=== PATIENT | female | born 1955 | race Caucasian/White ===

== ENCOUNTER → 2016-11-16 | Outpatient (CLI) | payer OTHER ==
[~2016-11-16] MED LIST: IBUP-1459 PO; MULT-506 PO; No Home Medications
--- NOTE | 2016-11-16 14:43 | MAMMOGRAPHY REPORT ---
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 She presents for annual bilateral mammography. TECHNIQUE: Bilateral CC and MLO 2-D digital and tomosynthesis images, spot magnification left CC, ML and spot compression tomosynthesis right CC and MLO views were obtained. Current study was also ev aluated with a Computer Aided Detection (CAD) system. COMPARISON: Comparison is made to exams dated: 05/18/2016 mammogram, 11/16/2015 stereotactic biopsy, mammogram, 11/09/2015 mammogram, 10/30/2015 mammogram, and 12/03/2013 mammogram - [facility]. BREAST COMPOSITION: There are scattered areas of fibroglandular density in both breasts. FINDINGS: A linear scar marker overlies the lower inner periareolar right breast. No obvious new m ass or new microcalcifications are seen in the right breast. There is minimal vascular calcificatio n. There is a possible subtle focal area of architectural distortion in the central right breast on CC tomosynthesis slice 24 and MLO tomosynthesis slice 29 for which additional spot compression iraj synthesis views were obtained. The additional spot compression tomosynthesis views in this area wit h small paddles fail to demonstrate the distortion, given the conspicuous nature on the CC tomosynth esis images, this area remains indeterminate. Further evaluation with ultrasound was performed. There is expected architectural distortion with 2 surgical clips in the 12:00 and central left breas t, at the site of prior lumpectomy. The spot magnification views demonstrate new pleomorphic microc alcifications extending over 14 x 17 x 6 mm in the middle one third of the left breast, just lateral and superior to the surgical site. These calcifications could possibly represent fat necrosis, but recurrent DCIS cannot be excluded, especially given that the morphology is somewhat similar to the original biopsy-proven DCIS. Therefore, further evaluation with a stereotactic guided biopsy is rec ommended. No other obvious new mass or unexpected architectural distortion is seen in the left [address]. Real-time high-resolution ultrasound was performed throughout the right breast. No corresponding fo mariela area of architectural distortion is identified on ultrasound. IMPRESSION: ACR BI-RADS CATEGORY 4B: INTERMEDIATE SUSPICION FOR MALIGNANCY, TARGETED ULTRASOUND ACR BI-RADS CATEGORY 4B: INTERMEDIATE SUSPICION FOR MALIGNANCY 1. There are new pleomorphic microcalcifications in the upper outer middle one third of the left br east, adjacent to the surgical site, extending over approximately 17 mm. Although these calcificati ons could represent fat necrosis, recurrent DCIS cannot be excluded and further evaluation with a le ft breast stereotactic guided biopsy is recommended. 2. There is a subtle probable area of architectural distortion in the central right breast. The pa koko does have a skin scar in the periareolar right breast from prior cyst excision many years ago. It is unclear if this distortion could be related to the remote surgery or represent a lesion such as a radial scar or carcinoma. As it was not identified on ultrasound, further evaluation with a c ontrast-enhanced breast MRI is recommended. Ideally would like the MRI performed prior to left maxine st stereotactic biopsy, in case there are any suspicious abnormalities seen in the right breast, the n we could perform both biopsies at the same time. These results and recommendations were discussed with the patient at the time of the exam. Will mark it the patient's discussion with her breast surgeon, Dr. Orellana, prior to scheduling any follow-up appointments. Approximately 10% of breast cancers are not detected with mammography. A negative mammographic repor t should not delay biopsy if a clinically suggestive mass is present. Denisse Powers M.D. ay/:11/16/2016 12:17:58 President + Publisher: Narcisa CLEVELAND(Karla)(Sheldon), [facility] letter sent: Abnormal 4/5 BI-RADS Code: ACR BI-RADS Category 4B: Intermediate Suspicion For Malignancy Ultrasound BI-RADS: AC R BI-RADS Category 4B: Intermediate Suspicion For Malignancy
== END | disposition home or self-care (01) ==
LOC: C.MAMM 10:43
PROVIDERS: ATTEND Surgery
DX: R92.0 Mammographic microcalcification found on diagnostic imaging of breast (principal); R92.8 Other abnormal and inconclusive findings on diagnostic imaging of breast; Z92.3 Personal history of irradiation; Z85.3 Personal history of malignant neoplasm of breast

== ENCOUNTER → 2016-12-01 | Outpatient (CLI) | payer OTHER ==
[~2016-12-01] MED LIST changes: +GADAVIST IV PRN
--- NOTE | 2016-12-05 13:19 | MAMMOGRAPHY REPORT ---
BREAST MRI OF BOTH BREASTS : 12/01/2016 CLINICAL HISTORY: History of left breast DCIS status post lumpectomy November 2015 as well as radiation therapy. New suspicious calcifications seen near the lumpectomy bed in the left breast on recent m ammograms. There is also a possible area of architectural distortion seen within the right breast o n recent mammograms. COMPARISON: Comparison is made to exams dated: 11/16/2016 mammogram, 05/18/2016 mammogram, 11/16/2016 ul trasound, 11/16/2015 mammogram, 05/10/2012 mammogram, and 12/03/2013 mammogram - [facility]. Technique: The patient was placed prone in a dedicated breast imaging coil. Precontrast axial T1-we ighted, axial T2-weighted fat saturation, and axial T1-weighted fat saturation images were obtained. After the administration of 7.5 mL of Gadavist IV contrast, sequential T1-weighted fat saturation images were obtained. Subtraction images were obtained of the dynamic contrast enhanced sequences, and 3-D reformations were performed. The [employer] software was used for kinetic analysis. Findings: Right breast: There is moderate background parenchymal enhancement, which reduces the sensitivity of the exam. Within the limitations of the exam, there are no suspicious enhancing masses or areas of abnormal non-mass enhancement. There is no clear abnormality seen within the region of the possibl e architectural distortion posterior to the right nipple on recent diagnostic mammograms. Left breast: There is moderate background parenchymal enhancement. Post surgical changes are seen w ithin the left breast from prior lumpectomy, predominantly involving the 12:00 and central breast. There is a focal area of abnormal non-mass enhancement seen within the left 12:30 to 1:00 breast mid dle depth, measuring approximately 1.1 x 2.2 cm (series [id number] image 54). This demonstrates a mixed kinetic pattern including suspicious washout kinetics. The enhancement corresponds with the new matheus mographic calcifications and is suspicious for malignancy. Two small adjacent 4 mm foci of enhanceme nt are also seen within the left superior subareolar breast anterior depth, which demonstrate persis tent and plateau kinetics (series [id number] images 58 and 60), and are indeterminate. There is no evidence of axillary adenopathy. The chest wall structures are negative. Visualized ex tramammary soft tissues are grossly unremarkable. IMPRESSION: ACR BI-RADS CATEGORY 4C: MODERATE SUSPICION FOR MALIGNANCY 1. Focal 2.2 cm area of abnormal enhancement in the left 12:30 to 1:00 breast, which corresponds wi th the new mammographic calcifications. Findings are suspicious for recurrent malignancy and stereo tactic biopsy is recommended for further evaluation. 2. Two adjacent 4 mm foci of enhancement in the left superior subareolar breast are indeterminate. M anagement of these foci should be based on pathology results of stereotactic biopsy. If stereotactic biopsy yields malignancy and if breast conserving therapy is still being considered as an option, t hen these foci should also be excised at the time of surgery. 3. No clear MRI evidence of malignancy in the right breast, although there is moderate background p arenchymal enhancement which reduces the sensitivity of the exam. No clear correlate for the mammog raphic architectural distortion is noted; however, the mammographic architectural distortion remains indeterminate. Recommend tomosynthesis-guided needle localization and surgical biopsy. A phone call was made to the physician's office to confirm faxed results were received. Nuzhat Sales M.D. ah/:12/03/2016 16:28:25 Industrial Psychology Teacher: hotel services supervisor, [facility] BI-RADS Code: ACR BI-RADS Category 4C: Moderate Suspicion For Malignancy
== END | disposition home or self-care (01) ==
LOC: C.MRI 12:00
PROVIDERS: ATTEND Surgery
DX: D05.12 Intraductal carcinoma in situ of left breast (principal); N64.9 Disorder of breast, unspecified

== ENCOUNTER → 2016-12-15 | Outpatient (CLI) | payer OTHER ==
[~2016-12-15] MED LIST changes: -GADAVIST IV PRN
--- NOTE | 2016-12-15 13:24 | Discharge Instructions ---
Discharge Instructions Procedure Procedure Date: December 15, 2016. Reason for visit: Left Enhancment. Discharge Discharge Date: December 15, 2016. Discharge Diagnosis: status post breast biopsy Instructions Activity Recommendations: Additional Limitations (see below) Return to School/Work: no limitations Recommended Home Diet: No Limitations Provider Instructions: ACTIVITY RECOMMENDATIONS: * No lifting, pushing, pulling or exercising the affected side for three days. RETURN TO SCHOOL/WORK: * You may return to work/school after the procedure, but do not perform any strenuous activities for 24 to 48 hours. MEDICATIONS: * Tylenol (two 325 mg) every four to six hours if needed for mild pain (if not allergic to Tylenol). DIET: * Resume previous diet. SPECIAL CARE INSTRUCTIONS: * Keep biopsy site dry for 24 hours. May shower after 24 hours, but do not soak (bathe) incision. * May remove Tegaderm (plastic patch) tomorrow AFTER showering. * Leave the steri-strips on for one week. Allow the steri-strips to fall off by themselves. If not off after one week, you may remove them. You may place a Bandaid crosswise over the strips, if desired. * Apply ice 10 minutes on and 10 minutes off as needed. * Wear a bra at bedtime to sleep more comfortably for 2-3 days. * Your referring physician should have the results after approximately 5 to 7 business days. * Call for unusual bleeding, fever, drainage, etc or if you have any questions call during normal business hours or after hours call Dr Sales, [phone]. FOLLOW UP VISIT: Follow-up with Referring Physician as scheduled. Allergies Coded Allergies: Penicillins (Verified Allergy, Unknown, DOESNOT WORK WELL., 12/11/14) Ruth Andino Recommendations: Call your doctor if: * Temperature above 101 degrees * Pain not relieved by pain medicine ordered * There is increased drainage or redness from any incision * You have any unanswered questions or concerns. Your Doctors Instructions noted above were prepared by provider Nuzhat Sales. Patient Signature Section: Patient Instructions Signature Page Madonna Ruano Patient (or Guardian) Signature/Date: I have read and understand the instructions given to me by my caregivers. Caregiver/RN/Doctor Signature/Date: The above-named patient and/or guardian has received patient instructions on this date. + Original Patient Signature Page (only) stays with chart. Please make copy for patient.
--- NOTE | 2016-12-15 15:36 | MAMMOGRAPHY REPORT ---
STEREOTACTIC GUIDED BIOPSY LEFT BREAST: 12/15/2016 CLINICAL HISTORY: Indeterminate calcifications in the left upper outer quadrant. PATIENT CONSENT: The procedure, risks, benefits, and alternatives of stereotactic biopsy with clip p kelsey were discussed with the patient, and verbal and written consent was obtained. A timeout wa s performed immediately prior to the procedure. PROCEDURE DESCRIPTION: With stereotactic guidance, aseptic technique, and lidocaine as a local anest hetic (1% lidocaine to anesthetize the skin and 1% lidocaine with epinephrine to anesthetize the delmi per tissues), the area of concern in the left upper outer quadrant was sampled multiple times with a 9-gauge vacuum-assisted biopsy needle ([employer]). The path of approach was lateral. The specim en radiograph demonstrates calcifications to be present in the samples. A metallic marker clip was placed at the biopsy site. This was confirmed on postprocedure mammograms. Direct pressure was maya lied at the biopsy site and hemostasis was readily achieved. The patient tolerated the procedure wi thout complication. She was given wound care instructions. COMPARISON: Comparison is made to exams dated: 12/01/2016 breast MRI, 11/16/2016 mammogram, 05/18/2016 mammogram, 11/16/2015 mammogram, and 12/03/2013 mammogram - [facility]. IMPRESSION: STEREOTACTIC GUIDED BIOPSY Stereotactic biopsy of indeterminate calcifications in the left upper outer quadrant, with clip mindi sequeira. The patient will receive pathology results from her referring provider. Nuzhat Sales M.D. /:12/15/2016 13:25:02 Attending Technologist: Jayashree Griffith RT(R)(M), [facility] Branch Service Specialist: Mary Lou Lima RT(R)(M), [facility]
--- NOTE | 2016-12-15 15:36 | MAMMOGRAPHY REPORT ---
UNILATERAL LEFT DIGITAL DIAGNOSTIC MAMMOGRAM: 12/15/2016 CLINICAL HISTORY: Status post left breast stereotactic biopsy. TECHNIQUE: Left CC, LM, and ML views were obtained. COMPARISON: Comparison is made to exams dated: 12/01/2016 breast MRI, 11/16/2016 mammogram, 05/18/2016 mammogram, and 11/16/2015 mammogram - [facility]. BREAST COMPOSITION: There are scattered areas of fibroglandular density in the left breast. FINDINGS: A preprocedural LM view was obtained for biopsy planning purposes. Postprocedural left M L and cc views were obtained post procedure, which shows a new biopsy marker clip at the site of the biopsied calcifications in the left upper outer quadrant. No significant postbiopsy hematoma is se en. IMPRESSION: POST PROCEDURE IMAGING FOR MARKER PLACEMENT New biopsy marker clip status post left breast stereotactic biopsy. Pathology results are pending. Approximately 10% of breast cancers are not detected with mammography. A negative mammographic repor t should not delay biopsy if a clinically suggestive mass is present. Nuzhat Sales M.D. ah/:12/15/2016 13:37:49 Attending Technologist: Jayashree Griffith RT(R)(M), [facility] Asw Specialist: Mary Lou Lima RT(R)(M), [facility] BI-RADS Code: Post Procedure Imaging For Marker Placement
== END | disposition home or self-care (01) ==
LOC: C.MAMM 12:32
PROVIDERS: ATTEND Surgery
DX: R92.0 Mammographic microcalcification found on diagnostic imaging of breast (principal)

== ENCOUNTER → 2017-07-10 | Outpatient (CLI) | payer OTHER ==
[~2017-07-10] MED LIST changes: -IBUP-1459 PO; -MULT-506 PO
--- NOTE | 2017-07-11 15:08 | MAMMOGRAPHY REPORT ---
UNILATERAL RIGHT DIGITAL DIAGNOSTIC MAMMOGRAM TOMOSYNTHESIS WITH CAD: 07/10/2017 CLINICAL HISTORY: 62-year-old woman with a personal history of left breast cancer with recurrence aft er breast conservation therapy status post mastectomy. She presents for follow-up in the right breas . Initially she was found to have a subtle area of architectural distortion in the central right br east not identified on ultrasound and tomosynthesis localization and surgical excisional biopsy were recommended. She had an excisional biopsy at the time of another biopsy performed in the left breast on 01/12/2017 and right breast pathology results yielded benign fibrocystic change, columnar cell ch mihai and adenosis. No DCIS or invasive carcinoma. TECHNIQUE: Right breast full Field tomosynthesis in addition to standard 2D mammography was performed . Spot compression tomosynthesis right CC and MLO views were also obtained. Current study was also evaluated with a Computer Aided Detection (CAD) system. COMPARISON: Comparison is made to exams dated: 11/16/2016 mammogram, 10/30/2015 mammogram, 12/03/2013 ma mmogram, 05/10/2012 mammogram - [facility], 11/05/2010 mammogram, and 02/16/2006 mammog [facility]. BREAST COMPOSITION: The tissue of the right breast is heterogeneously dense, which may obscure small masses. FINDINGS: A linear scar marker overlies the anterior periareolar right breast. There is a small, ve ry subtle area of architectural distortion in the right breast 4.7 cm distal to the nipple on the spo t compression CC view, along the posterior nipple line. No other focal areas of architectural distor tion are identified. Given that there is only one current area of distortion, presumably this repres ents postsurgical change from surgical excisional biopsy. It was difficult to see the distortion dur ing the right breast preoperative localization given that only 2-D images are provided and the specim en radiograph was only performed 2-D. No other suspicious mass, asymmetry or calcifications are seen in the right breast. Would recommend very close follow-up right diagnostic tomosynthesis mammograms and MRI to ensure stability and adequate tissue sampling after needle localized excisional biopsy in the right breast. IMPRESSION: ACR-BI-RADS CATEGORY 3: PROBABLY BENIGN There is only one subtle focal area of architectural distortion in the central right breast, presumab ly representing post biopsy change. However, it is difficult to appreciate the distortion on the nee dle localization images and surgical specimen radiograph given that they were performed 2-D, not 3-D. Ultrasound was not performed given the subtle nature of the previously observed distortion and the fact that [facility] ultrasound was unyielding during diagnostic workup for 12/31/2016. Therefore a very close follow-up right diagnostic tomosynthesis mammogram is recommended in 2017 as we ll as a follow-up breast MRI in November-December 2017 to ensure stability after biopsy. These results and recommendations were discussed with the patient at the time of the exam. Approximately 10% of breast cancers are not detected with mammography. A negative mammographic report should not delay biopsy if a clinically suggestive mass is present. Denisse Powers M.D. ay/:07/10/2017 15:11:58 Shuttler: Narcisa MINER)(Sheldon), [facility] letter sent: Follow Up Recommended 3 BI-RADS Code: ACR-BI-RADS Category 3: Probably Benign
== END | disposition home or self-care (01) ==
LOC: C.MAMM 13:54
PROVIDERS: ATTEND Surgery
DX: R92.8 Other abnormal and inconclusive findings on diagnostic imaging of breast (principal); Z98.890 Other specified postprocedural states